=== PATIENT | male | born 1960 | race Caucasian/White ===

== ENCOUNTER 2018-03-22 06:58 | Day surgery (SDC) | payer OTHER ==
[2018-03-19 12:11] VITALS: BMI 26.8
[2018-03-22] MEDS ORDERED: Propofol 10 mg/ml Inj (20 ML) ONE (08:19)
[2018-03-22] MEDS ORDERED: Lactated Ringer's 1,000 ML IV ONE (08:20)
--- NOTE | 2018-03-22 08:20 | CP.SDSHP ---
Same Day Surgery H & P - History Proposed Procedure: EGD and colonoscopy Pre-Op Diagnosis: Dyspepsia, screening for colon cancer, history of ulcerative colitis - Previous Medical/Surgical History Neuro: Headaches Misc: Other Comments: Ulcerative colitis Previous Surgical History: None - Allergies Allergies: Allergies No Known Allergies Allergy (Verified 03/19/18 12:09) - Current Medications Current Medications: See reconciliation sheet - Physical Exam General Appearance: WD WN male in NAD Vital Signs: Vital Signs 03/22/18 07:09 Temperature 98 F Pulse Rate 84 Respiratory 18 Rate Blood Pressure 141/76 O2 Sat by Pulse 98 Oximetry Mental Status: Alert & Oriented x3 Neuro: WNL Heart: WNL Lungs: WNL GI: WNL - {Optional Preform as Required} Abdomen: WNL - Impression Impression: Dyspepsia, screening for colorectal cancer Pt. Evaluated Today:Candidate for Anesthesia & Procedure: Yes - Date & Time Date: 03/22/18 Time: 08:20 Short Stay Discharge - Short Stay Discharge Admitting Diagnosis/Reason for Visit: ABDOMINAL PAIN / COLITIS Disposition: HOME/ ROUTINE
[2018-03-22] MEDS ORDERED: Midazolam 2 MG/2 ML VIAL ONE (08:28)
[2018-03-22 09:12] VITALS: TEMP 97.3; O2SAT 97
[2018-03-22 10:12] VITALS: BP 112/78; PULSE 88; RESP 12
== END 2018-03-22 10:10 | disposition home or self-care (01) ==
LOC: C.ENDO 06:58
PROVIDERS: ATTEND Internal Medicine Gastroenterology
DX: R10.84 Generalized abdominal pain (principal); K51.90 Ulcerative colitis, unspecified, without complications; Z12.11 Encounter for screening for malignant neoplasm of colon; K57.90 Diverticulosis of intestine, part unspecified, without perforation or abscess without bleeding; K52.9 Noninfective gastroenteritis and colitis, unspecified; R10.13 Epigastric pain; K29.70 Gastritis, unspecified, without bleeding; K44.9 Diaphragmatic hernia without obstruction or gangrene
CPT/HCPCS: 43239; 45380; 88305; J2250; J2704; J7120